=== PATIENT | male | born 1980 | race Caucasian/White ===

== ENCOUNTER 2018-02-14 22:54 | Emergency (ER) | payer OTHER ==
[~2018-02-14] VITALS: Ht 175.3 cm; Wt 90.7 kg
[~2018-02-14 22:54] MED LIST: Augmentin 875-1 EACH PO; CRUTCH3 USE; CYCL10 PO; Cleocin HCl300 MG PO; DIPH25 PO; FAMO20 PO; FAMO40 PO; HYDACE5 PO; IBUP800 PO; METPRE4DP PO; Norco 5-325 Ta1 EACH PO; OXYC5 PO; PROM25 PO; RXCYCL10 PO
[2018-02-14] MEDS ORDERED: Inderal40 MG (23:16)
[2018-02-14] MEDS ORDERED: TRAZ50 PO (23:16)
[2018-02-14] MEDS ORDERED: Prozac20 MG PO (23:17)
== END 2018-02-15 02:21 | disposition left against medical advice (07) ==
LOC: ER 22:54
DX: Z53.21 Procedure and treatment not carried out due to patient leaving prior to being seen by health care provider (principal)

== ENCOUNTER 2019-01-13 21:42 | Emergency (ER) | payer SELFPAY ==
[~2019-01-13] VITALS: Ht 175.3 cm; Wt 77.1 kg
[~2019-01-13 21:42] MED LIST changes: +Inderal40 MG; +Prozac20 MG PO; +TRAZ50 PO
[2019-01-13] MEDS ORDERED: Inderal40 MG PO (22:51)
== END 2019-01-13 23:04 | disposition home or self-care (01) ==
LOC: ER 21:42
DX: R04.0 Epistaxis (principal); I10 Essential (primary) hypertension; F41.9 Anxiety disorder, unspecified; Z87.891 Personal history of nicotine dependence; Z79.899 Other long term (current) drug therapy
CPT/HCPCS: 99282